=== PATIENT | female | born 1960 | race Caucasian/White ===

== ENCOUNTER 2024-02-09 20:51 | Emergency (ER) | payer MEDICARE, OTHER ==
[~2024-02-09] VITALS: Ht 162.6 cm; Wt 85.3 kg
[2024-02-09 21:06] VITALS: BP_SYST 130; PULSE 79; RESP 16; TEMP 97.3; O2SAT 97
[2024-02-09] MEDS: ONDANSETRON 4 MG ODT TAB PO ONE (21:33)
[2024-02-09] MEDS: MORPHINE 2 MG/ML INJ. SYRINGE IM ONE (21:34)
[2024-02-09 21:45] VITALS: BP_SYST 130; PULSE 79; RESP 16; TEMP 97.3; O2SAT 97
== END 2024-02-09 21:48 | disposition home or self-care (01) ==
LOC: SED 20:51
DX: G43.909 Migraine, unspecified, not intractable, without status migrainosus (principal); R11.0 Nausea
CPT/HCPCS: 99283; 96372; Q0162; J2270